=== PATIENT | female | born 1990 | race Caucasian/White ===

== ENCOUNTER 2017-04-01 15:12 | Emergency (ER) | payer MEDICAID, OTHER ==
[~2017-04-01] VITALS: Ht 162.6 cm; Wt 75.0 kg
[~2017-04-01 15:12] MED LIST: BUPR4MIS SL; PRENCAP6 PO; SULF-154 PO
[2017-04-01 15:13] VITALS: BP 114/67; PULSE 110; RESP 16; TEMP 97.8; O2SAT 98
--- NOTE | 2017-04-01 15:48 | PD ---
HPI Chief Complaint: Cold / Flu Symptoms Time Seen by Provider: 15:47 Travel History International Travel<30 days: No Contact w/Intl Traveler<30days: No Traveled to known affect area: No History of Present Illness HPI 26-year-old female came to the emergency room with history of cold, congestion and body aches for 2 days. She is visibly upset and crying and not really forthcoming with her history. All she said was both her and her child have been sick. She was on the phone the entire time. She was slightly tachycardic in triage but afebrile. [facility] Past Medical History Narrative Medical List of her past medical, surgical, social and family history is reviewed from the nursing note. Anxiety: Yes Diabetes: No Diminished Hearing: No Hepatitis: Yes (C) Immunizations Current: Yes Seizures: No ?: Not LMP: 03/31/16 Social History Alcohol Use: No Tobacco Use: Yes (smokes about half a pack of cigarettes per day) Substance Use: Yes (OPIATE ABUSE) Allergies-Medications (Allergen,Severity, Reaction): Coded Allergies: No Known Allergies (Unverified , 01/27/16) Comments No known drug allergies Reported Meds & Prescriptions Reported Meds & Active Scripts Active Naproxen 500 Mg Tab 500 Mg PO BID Robitussin Cough Chest Congestion (Dextromethorphan-Guaifenesin) 10-200 Mg Cap 1 Cap PO Q6H PRN Septra Ds (Trimethoprim/Sulfamethoxazole) Tab 1 Tab PO BID Reported 1 ( Multivitamins) Cap 1 Cap PO Suboxone 4 mg/1 mg 4 mg/1 mg Subl 1 Strip SL DAILY SUBLINGUAL STRIP. Narrative Medication List of her home medications reviewed from the nursing note. Review of Systems Except as stated in HPI: all other systems reviewed are Neg Respiratory: Positive: Cough Musculoskeletal: Positive: Myalgias Physical Exam Narrative GENERAL: Awake, alert, tearful SKIN: Focused skin assessment warm/dry. HEAD: Atraumatic. Normocephalic. EYES: Pupils equal and round. No scleral icterus. No injection or drainage. ENT: No nasal bleeding or discharge. Mucous membranes pink and moist. NECK: Trachea midline. No JVD. CARDIOVASCULAR: Regular rate and rhythm. No murmur appreciated. RESPIRATORY: No accessory muscle use. Clear to auscultation. Breath sounds equal bilaterally. GASTROINTESTINAL: Abdomen soft, non-tender, nondistended. Hepatic and splenic margins not palpable. MUSCULOSKELETAL: No obvious deformities. No clubbing. No cyanosis. No edema. NEUROLOGICAL: Awake and alert. No obvious cranial nerve deficits. Motor grossly within normal limits. Normal speech. PSYCHIATRIC: Appropriate mood and affect; insight and judgment normal. Data Data Last Documented VS Vital Signs Date Time Temp Pulse Resp B/P (MAP) Pulse Ox O2 Delivery O2 Flow Rate FiO2 04/01/17 18:30 04/01/17 17:31 20 99 Room Air 04/01/17 15:13 97.8 110 Orders Orders Influenzae A/B Antigen (04/01/17 16:13) Ed Discharge Order (04/01/17 18:11) MDM Medical Decision Making Medical Screen Exam Complete: Yes Emergency Medical Condition: Yes Medical Record Reviewed: Yes Differential Diagnosis Influenza, viral illness Narrative Course 4:29 PM awaiting for the influenza test to be resulted. 4:48 PM awaiting for the influenza test to be resulted. Case will be signed over to the oncoming ER physician. Procedures EKG Prior to Arrival: No Scripts Naproxen (Naproxen) 500 Mg Tab 500 MG PO BID, #20 TAB 0 Refills Prov: Connor Steen MD 04/01/17 Dextromethorphan-Guaifenesin (Robitussin Cough Chest Congestion) 10-200 Mg Cap 1 CAP PO Q6H Y for CHEST CONGESTION AND/OR COUGH, #20 CAP 0 Refills Prov: Connor Steen MD 04/01/17 Griselda De Oliveira MD Apr 01, 2017 15:48
[2017-04-01] MEDS ORDERED: NAPR500T2 PO (18:11)
[2017-04-01] MEDS ORDERED: DEXT1CAP5 PO (18:11)
--- NOTE | 2017-04-01 18:11 | PD ---
Data Data Last Documented VS Vital Signs Date Time Temp Pulse Resp B/P (MAP) Pulse Ox O2 Delivery O2 Flow Rate FiO2 04/01/17 17:31 20 99 Room Air 04/01/17 15:13 97.8 110 114/67 (83) Orders Orders Influenzae A/B Antigen (04/01/17 16:13) [facility] Supervised Visit with JOE: No Narrative Course 18-year-old woman cough cold symptoms, seen by Dr. De Oliveira, set up to follow up on the result of influenza testing. Repeat exam, patient looks well. No respiratory distress. Influenza is negative. Impression, flulike symptoms. Supportive treatment. Diagnosis Primary Impression: Influenza-like illness Departure Forms: Tests/Procedures, Work Release Enter return to work date: Apr 03, 2017 Additional Instruction: Take medications as prescribed. Follow-up with her primary doctor Becca on the next 2-4 days. Return to the emergency department for any new or worsening symptoms. Med/Other Pt SpecificInfo: Prescription(s) given Scripts Naproxen (Naproxen) 500 Mg Tab 500 MG PO BID, #20 TAB 0 Refills Prov: Connor Steen MD 04/01/17 Dextromethorphan-Guaifenesin (Robitussin Cough Chest Congestion) 10-200 Mg Cap 1 CAP PO Q6H Y for CHEST CONGESTION AND/OR COUGH, #20 CAP 0 Refills Prov: Connor Steen MD 04/01/17 Disposition: 01 DISCHARGE HOME Condition: Stable Connor Steen MD Apr 01, 2017 18:11
== END 2017-04-01 18:47 | disposition home or self-care (01) ==
LOC: NEPD 15:12
DX: J11.1 Influenza due to unidentified influenza virus with other respiratory manifestations (principal); M79.1 Myalgia; R00.0 Tachycardia, unspecified; F41.9 Anxiety disorder, unspecified; F17.200 Nicotine dependence, unspecified, uncomplicated; Z86.19 Personal history of other infectious and parasitic diseases
CPT/HCPCS: 87804; 99283

== ENCOUNTER 2017-05-23 21:25 | Emergency (ER) | payer MEDICAID ==
[~2017-05-23] VITALS: Ht 160 cm; Wt 68.0 kg
[~2017-05-23 21:25] MED LIST changes: +DEXT1CAP5 PO; +NAPR500T2 PO
[2017-05-23 21:46] VITALS: BP 119/64; PULSE 101; RESP 16; TEMP 99.4; O2SAT 98
--- NOTE | 2017-05-23 21:48 | PD ---
HPI Chief Complaint: Cold / Flu Symptoms Time Seen by Provider: 21:37 Travel History International Travel<30 days: No Contact w/Intl Traveler<30days: No Traveled to known affect area: No History of Present Illness HPI Patient is a 26-year-old female presenting to the emergency department for evaluation of cough, headache, nasal congestion. She states her symptoms started last night, she reports a fever of 102 then. She has not taken any ibuprofen or acetaminophen today. She denies any vomiting, chest pain, shortness of breath. She does report suprapubic pressure when she coughs at her incision. She stated that she feels as if it is going to "bust open". Symptom onset was gradual, severity is mild. PFSH Past Medical History Anxiety: Yes Depression: Yes Hepatitis: Yes (C, pt states undetectable) Immunizations Current: Yes Tetanus Vaccination: < 5 Years Influenza Vaccination: No ?: Not LMP: 03/26/2017 Past Surgical History Section: Yes Social History Alcohol Use: No Tobacco Use: Yes (smokes about half a pack of cigarettes per day) Substance Use: No Allergies-Medications (Allergen,Severity, Reaction): Coded Allergies: No Known Allergies (Unverified Adverse Reaction, Unknown, 05/23/17) Reported Meds & Prescriptions Reported Meds & Active Scripts Active Keflex (Cephalexin) 500 Mg Cap 500 Mg PO Q12H 5 Days Review of Systems Except as stated in HPI: all other systems reviewed are Neg General / Constitutional: Positive: Fever HENT: Positive: Headaches, Congestion Cardiovascular: No: Chest Pain or Discomfort Respiratory: Positive: Cough, No: Shortness of Breath Gastrointestinal: No: Nausea, Vomiting Genitourinary: Positive: Pelvic Pain (Suprapubic), No: Dysuria Musculoskeletal: Positive: Myalgias Physical Exam Narrative GENERAL: Well-developed, well-nourished, alert female. Presenting in no acute distress. SKIN: Warm and dry. HEAD: Atraumatic. Normocephalic. EYES: Pupils equal and round. No scleral icterus. No injection or drainage. ENT: No nasal bleeding or discharge. Mucous membranes pink and moist. NECK: Trachea midline. No JVD. CARDIOVASCULAR: Regular rate and rhythm. RESPIRATORY: No accessory muscle use. Clear to auscultation. Breath sounds equal bilaterally. GASTROINTESTINAL: Abdomen soft, mildly tender to palpation suprapubic region r, nondistended. Hepatic and splenic margins not palpable. Active bowel sounds, no rebound, no guarding. MUSCULOSKELETAL: Extremities without clubbing, cyanosis, or edema. No obvious deformities. NEUROLOGICAL: Awake and alert. No obvious cranial nerve deficits. Motor grossly within normal limits. Five out of 5 muscle strength in the arms and legs. Normal speech. PSYCHIATRIC: Appropriate mood and affect; insight and judgment normal. Data Data Last Documented VS Vital Signs Date Time Temp Pulse Resp B/P (MAP) Pulse Ox O2 Delivery O2 Flow Rate FiO2 05/23/17 21:46 99.4 101 16 119/64 (82) 98 Room Air Orders Orders Urinalysis - C+S If Indicated (05/23/17 21:44) Urine Culture (05/23/17 21:47) Ed Discharge Order (05/23/17 22:25) Labs Laboratory Tests Test 05/23/17 21:47 Urine Color YELLOW Urine Turbidity HAZY Urine pH 7.0 Urine Specific [place] 1.022 Urine Protein TRACE mg/dL Urine Glucose (UA) NEG mg/dL Urine Ketones NEG mg/dL Urine Occult Blood NEG Urine Nitrite NEG Urine Bilirubin NEG Urine Urobilinogen LESS THAN 2.0 MG/DL Urine Leukocyte Esterase MOD Urine RBC 2 /hpf Urine WBC 21 /hpf Urine Squamous Epithelial Cells 8 /hpf Urine Mucus MANY /lpf Microscopic Urinalysis Comment CULTURE INDICATED MDM Medical Decision Making Medical Screen Exam Complete: Yes Emergency Medical Condition: Yes Interpretation(s) Vital Signs Date Time Temp Pulse Resp B/P (MAP) Pulse Ox O2 Delivery O2 Flow Rate FiO2 05/23/17 21:46 99.4 101 16 119/64 (82) 98 Room Air Differential Diagnosis Viral syndrome versus influenza versus UTI versus other Narrative Course Patient is a 18-year-old female presented for evaluation of cold and flu symptoms that started yesterday. Patient's vital signs are stable and she is afebrile. She has not taken any medications today. She also reported pelvic or suprapubic pressure. Will check urinalysis. Physical exam otherwise appears most consistent with a viral syndrome. Likely URI. Urinalysis is consistent with a urinary tract infection, patient will be started on Keflex. Reflux culture is pending. Patient was encouraged to increase fluid intake. She is encouraged to continue symptom management in regards to her upper respiratory infection. She verbalized understanding of these instructions. Patient stable for discharge. Diagnosis Primary Impression: UTI (urinary tract infection) in in second trimester Additional Impression: Upper respiratory infection Qualified Codes: J06.9 - Acute upper respiratory infection, unspecified Referrals: Primary Care Physician Patient Instructions: General Instructions, Upper Respiratory Infection (ED), Urinary Tract Infection in Women (ED) Departure Forms: Tests/Procedures, Work Release Enter return to work date: Jun 22, 2017 Additional Instructions: Increase fluid intake Complete full course of antibiotics as prescribed Continue symptom management in regards to your cold symptoms. Ibuprofen or Tylenol for fevers or body aches. Nasal decongestant for runny stuffy nose or similar agent. Follow-up with your primary doctor Return to emergency department for any new worsening symptoms Med/Other Pt SpecificInfo: Prescription(s) given Scripts Cephalexin (Keflex) 500 Mg Cap 500 MG PO Q12H for Infection for 5 Days, #10 CAP 0 Refills Prov: Regine Segovia 05/23/17 Disposition: 01 DISCHARGE HOME Condition: Stable Regine Segovia May 23, 2017 21:48
[2017-05-23 22:17] LABS: BILIRUBIN, URINE NEG (NEG); BLOOD, URINE NEG (NEG); GLUCOSE,URINE NEG (NEG); KETONE, URINE NEG (NEG); MUCUS URINE MANY /lpf (OCC); NITRITE,URINE NEG (NEG); SQUAMOUS EPITHELIAL CELL URINE 8 /hpf (0-5); URINE COLOR YELLOW (YELLW/STRAW); URINE LEUKOCYTE ESTERASE MOD (NEG)
[2017-05-23] MEDS ORDERED: CEPH-460 PO (22:24)
== END 2017-05-23 22:41 | disposition home or self-care (01) ==
LOC: NEPD 21:25
DX: O23.42 Unspecified infection of urinary tract in pregnancy, second trimester (principal); J06.9 Acute upper respiratory infection, unspecified; B96.20 Unspecified Escherichia coli [E. coli] as the cause of diseases classified elsewhere; O99.332 Smoking (tobacco) complicating pregnancy, second trimester
CPT/HCPCS: 81001; 87077; 87086; 87186; 99283